=== PATIENT | male | born 1995 | race Caucasian/White ===

== ENCOUNTER 2021-01-07 21:45 | Emergency (ER) | payer OTHER ==
[~2021-01-07] VITALS: Ht 182.9 cm; Wt 103.4 kg
[~2021-01-07 21:45] MED LIST: CLON1TAB11 PO; D ME PO; ERTA1VIA4 IV; GUAI600T31 PO
--- NOTE | 2021-01-07 23:25 | NUR ---
Pt states his midline is leaking at the insertion site. Pt states he was able to get tonights abx in, but it was very slow, and when he flushed it, it leaked at insertion site.
[2021-01-08 01:13] VITALS: BP 124/73
--- NOTE | 2021-01-08 01:25 | NUR ---
Pt midline dc'd. Pt Dc'd to home with oral abx. Pt dc'd with written and verbal instructions. Pt has several f/u appts already scheduled this week. rx and dc instructions reviewed and stated he understands. Pt ambulatory out of ed with stable VS and home with mom.
== END 2021-01-08 01:29 | disposition home or self-care (01) ==
LOC: ED 01-08 00:06
DX: T85.698A Other mechanical complication of other specified internal prosthetic devices, implants and grafts, initial encounter (principal); J15.9 Unspecified bacterial pneumonia; R07.89 Other chest pain; Z87.891 Personal history of nicotine dependence
CPT/HCPCS: 71046; 99283

== ENCOUNTER → 2021-01-21 | Outpatient (CLI) | payer OTHER | END | disposition home or self-care (01) | LOC: RAD 11:46 | PROVIDERS: ATTEND Nurse Practitioner | DX: J18.9 Pneumonia, unspecified organism (principal) | CPT/HCPCS: 71046 ==

== ENCOUNTER 2021-01-30 10:38 | Emergency (ER) | payer OTHER ==
[~2021-01-30] VITALS: Ht 182.9 cm; Wt 98.3 kg
[2021-01-30 12:21] VITALS: BP 129/75
== END 2021-01-30 12:39 | disposition home or self-care (01) ==
LOC: ED 12:18
DX: J18.9 Pneumonia, unspecified organism (principal); R07.89 Other chest pain; R05 Cough
CPT/HCPCS: 71046; 93005; 99283